=== PATIENT | female | born 1950 | race Caucasian/White ===

== ENCOUNTER 2021-06-10 13:46 | Outpatient (REF) | payer MEDICARE, MEDICAID, SELFPAY ==
--- NOTE | ~2021-06-10 | XR_ITS ---
EXAMINATION: LEFT HAND/WRIST. CLINICAL INFORMATION: Pain in left hand/wrist. Status post fall a month ago. COMPARISON: None TECHNIQUE: 4 views. FINDINGS: There is a small avulsion fracture base of the fifth metacarpal without displacement. No additional fractures seen. There is diffuse osteopenia. There is mild loss of PIP and DIP joints of all digits. No deformity seen. The scaphoid bone appears unremarkable. XR/XR hand wrist LT IMPRESSION: Nondisplaced avulsion fracture base of fifth metacarpal. Mild osteopenia. Mild degenerative changes PIP and DIP joints.
== END 2021-06-10 13:47 | disposition home or self-care (01) ==
LOC: HO.XRAY 13:46
PROVIDERS: PCP Family Medicine; Visit Provider Family Medicine
DX: M79.642 Pain in left hand (principal)
CPT/HCPCS: 73110; 73130

== ENCOUNTER 2021-07-15 12:24 | Outpatient (REF) | payer MEDICARE, MEDICAID, SELFPAY | END 2021-07-15 12:25 | disposition home or self-care (01) | LOC: HO.MAMMO 12:24 | PROVIDERS: PCP Family Medicine; Visit Provider Family Medicine | DX: Z13.89 Encounter for screening for other disorder (principal) ==

== ENCOUNTER 2023-03-31 13:41 | Outpatient (REF) | payer MEDICARE, MEDICAID, SELFPAY ==
--- NOTE | ~2023-03-31 | MM_ITS ---
EXAMINATION: MM SCREENING DIGITAL BREAST TOMOSYNTHESIS, BILATERAL CLINICAL INFORMATION: Screening. Asymptomatic. The lifetime risk of breast cancer based on the Tyrer-Cuzick Model is 3%. COMPARISON: Mammography: 03/25/2018, 01/29/2017, 10/11/2015 TECHNIQUE: Digital breast tomosynthesis is performed in both the craniocaudal and mediolateral oblique views along with computer-aided detection (CAD). Synthesized 2D images are generated from the tomosynthesis. FINDINGS: The breasts are almost entirely fatty (ACR BI-RADS breast composition Category a). There are no significant masses, abnormal calcifications, or other abnormalities. No developing density or architectural abnormality. There are scattered bilateral benign ductal secretory calcifications. The axilla and skin contours are unremarkable. No significant changes. MM/MM tomosynthesis screening BI IMPRESSION: No mammographic evidence of malignancy. ASSESSMENT: BI-RADS 2: Benign RECOMMENDATION: Routine annual mammography screening. This patient's information was entered into a reminder system with a target due date for their next mammogram.
== END 2023-03-31 13:42 | disposition home or self-care (01) ==
LOC: HO.MAMMO 13:41
PROVIDERS: PCP Family Medicine; Visit Provider Family Medicine
DX: Z12.31 Encounter for screening mammogram for malignant neoplasm of breast (principal)
CPT/HCPCS: 77063; 77067

== ENCOUNTER 2023-05-15 13:15 | Outpatient (REF) | payer MEDICARE, MEDICAID, SELFPAY ==
[2023-05-15 16:06] LABS: MANUAL DIFF FLAG NO
[2023-05-15 16:17] LABS: Basophils Absolute Auto 0.1 X10*3/uL (0.0-0.2); Basophils Percent Auto 1.4 % (0-2); Eosinophils Absolute Auto 0.1 X10*3/uL (0.0-0.4); Eosinophils Percent Auto 2.2 % (0-4); Hematocrit 40.8 % (37.0-47.0); Hemoglobin 13.1 g/dl (12.0-16.0); Imm Gran Abs Auto 0.01 X10*3/uL (0.00-0.03); Imm Gran Pct Auto 0.2 % (0.0-0.4); Lymphocytes Percent Auto 33.3 % (20-40); Mean Corpuscular HGB Conc 32.1 g/dl (31.0-35.0); Mean Corpuscular Volume 90.5 fL (80.0-98.0); Mean Platelet Volume 11.7 fL (9.4-12.3); Monocytes Absolute Auto 0.7 X10*3/uL (0.1-1.2); Monocytes Percent Auto 12.4 % (2-11); Neutrophils Percent Auto 50.5 % (45-73); Platelet Count 308 X10*3/uL (160-400); Red Blood Count 4.51 X10*6/uL (4.20-5.50); Red Cell Distribution Width 12.7 % (11.0-16.0); White Blood Count 5.9 X10*3/uL (4.8-10.8)
[2023-05-15 16:31] LABS: Estimated Average Glucose 117 mg/dL; Hemoglobin A1c % 5.7 %
[2023-05-15 17:01] LABS: Chloride 107 mmol/L (96-108)
[2023-05-15 17:06] LABS: Alanine Aminotransferase 12 U/L (0-31); Albumin Level 3.7 g/dL (3.5-5.0); Alkaline Phosphatase 81 U/L (39-117); Anion Gap 14 (12-20); Aspartate Amino Transferase 20 U/L (5-31); Bilirubin Direct 0.2 mg/dL (0.0-0.5); Bilirubin Total 0.5 mg/dL (0.0-1.0); Blood Urea Nitrogen 11 mg/dL (9-16); Carbon Dioxide 25 mmol/L (22-29); Cholesterol 244 mg/dL; Estimated Glomerular Filt Rate > 60; Glucose Random 109 mg/dL (60-115); HDL Cholesterol 57 mg/dL; LDL Cholesterol Calculated 165 mg/dl; Potassium 4.8 mmol/L (3.3-5.1); Sodium 141 mmol/L (135-145); Total Protein 7.9 g/dL (6.5-8.0); Triglycerides 110 mg/dL
[2023-05-15 17:19] LABS: Free T4 (Free Thyroxine) 1.05 ng/dL (0.71-1.85); Thyroid Stimulating Hormone 3.53 uIU/mL (0.32-4.0); Vitamin D 25-OH Total 28.9 ng/mL (>30)
== END 2023-05-15 13:16 | disposition home or self-care (01) ==
LOC: HO.HHCL 13:15
PROVIDERS: Visit Provider Family Medicine
DX: E55.9 Vitamin D deficiency, unspecified (principal); I10 Essential (primary) hypertension; R73.01 Impaired fasting glucose; E78.5 Hyperlipidemia, unspecified
CPT/HCPCS: 36415; 80048; 80061; 80076; 82306; 83036; 84439; 84443; 85025

== ENCOUNTER 2023-05-19 13:54 | Outpatient (REF) | payer MEDICARE, MEDICAID, SELFPAY ==
[2023-05-19 16:40] LABS: Urine Cytology See Pathology rpt
[2023-05-19 18:43] LABS: Creatinine Urine 308.54 mg/dL; Microalbum/Creatinine Ratio Ur 9.3 ug/mg cr
== END 2023-05-19 13:55 | disposition home or self-care (01) ==
LOC: HO.HHCL 13:54
PROVIDERS: Visit Provider Family Medicine
DX: R73.01 Impaired fasting glucose (principal); I10 Essential (primary) hypertension
CPT/HCPCS: 82043; 88112

== ENCOUNTER 2023-10-01 14:22 | Outpatient (REF) | payer MEDICARE, MEDICAID, SELFPAY ==
--- NOTE | ~2023-10-01 | US_ITS ---
EXAMINATION: US RETROPERITONEAL LIMITED (RENAL ONLY) CLINICAL INFORMATION: Hematuria, follow up renal cyst. COMPARISON: Ultrasound retroperitoneal limited 05/26/2019 and 04/12/2018. CT abdomen and pelvis without and with contrast 04/01/2017. TECHNIQUE: Real-time imaging of the kidneys. FINDINGS: RIGHT KIDNEY: 9.1 x 4.9 x 5.5 cm (SAG x AP x TRV). The kidney is normal in size, contour, and echogenicity. Renal cortical thickness is normal. No calculi or focal parenchymal lesions. No hydronephrosis. LEFT KIDNEY: 8.8 x 5.0 x 4.3 cm (SAG x AP x TRV). The kidney is normal in size, contour, and echogenicity. Renal cortical thickness is normal. No calculi or focal parenchymal lesions. Previously seen tiny 6 mm cyst at the lower pole of the left kidney is not visualized on today's exam. In any event, there is no indication for follow up of this abnormality. No hydronephrosis. US/US renal BI IMPRESSION: Negative exam. If hematuria persists, a CT urogram may be beneficial.
== END 2023-10-01 14:23 | disposition home or self-care (01) ==
LOC: HO.US 14:22
PROVIDERS: PCP Family Medicine; Visit Provider Family Medicine
DX: R31.29 Other microscopic hematuria (principal)
CPT/HCPCS: 76775

== ENCOUNTER 2023-10-06 13:58 | Outpatient (REF) | payer MEDICARE, MEDICAID, SELFPAY | END 2023-10-06 13:59 | disposition home or self-care (01) | LOC: HO.LNP 13:58 | PROVIDERS: PCP Family Medicine; Visit Provider Nurse Practitioner Family | DX: R31.29 Other microscopic hematuria (principal); N39.0 Urinary tract infection, site not specified; N28.1 Cyst of kidney, acquired | CPT/HCPCS: 81003; 87086; 99202 ==

== ENCOUNTER 2023-10-06 13:58 | Outpatient (AMB) | payer MEDICARE, MEDICAID, SELFPAY ==
--- NOTE | 2023-10-06 14:01 | MHC.OFFVIS ---
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 Accompanied by: Daughter Allergies penicillin G [Penicillin G] Allergy (Mild, Unverified 10/06/23 14:46) DIZZY,HIVES penicillin V Allergy (Unknown, Unverified 10/06/23 14:46) Unknown Medication List - Last Reconciled 10/06/23 by Bushra Mosher CUSTOMER SALES REPRESENTATIVE- amlodipine 10 mg PO DAILY cetirizine 10 mg PO DAILY ezetimibe mg PO nitrofurantoin monohyd/m-cryst 100 mg (Macrobid) 100 mg PO Q12H 14 days propranolol mg PO sertraline 50 mg PO DAILY tramadol 50 mg PO BID PRN HPI HPI Comments History of Present Illness Details Tosha is a pleasant 73 year old female patient of who was accompanied by her daughter at today's office visit. She has a past medical history of chronic GERD, osteoporosis, overweight, rosacea, major depression, pre diabetes, hyperlipidemia, and hypertension. She presents to the office today as a new patient for microscopic hematuria. When asked she does report previous smoking history of approximately 5 years with no more than half a pack per day. However, she reports having quit over 50 years ago. She otherwise denies any known chemical exposure. In office urinalysis results reviewed with the patient today. 3+ leukocytes, proteinuria, and microscopic hematuria. Discussed at length potential causes of microscopic hematuria. When asked she does report noting lower urinary tract symptoms over the last 2-4 weeks. She reports urinary frequency, urinary urgency, with episodes of incontinence if not near a bathroom. She also does report intermittent dysuria. She otherwise denies any visible hematuria, foul-smelling urine, flank pain, fever, and or chills. Discussed further microscopic hematuria workup with CT urogram, urine cytology, and in office cystoscopy. Discussed risks and benefits of surveillance monitoring versus further microscopic hematuria workup. She otherwise offers no other issues or concerns at this time. In review of patient's chart does appear renal ultrasound was ordered and completed. These results reviewed with the patient today. Right kidney with no calculi, lesions, and or hydronephrosis. Left kidney with no calculi and or lesions noted. Previously seen tiny 6 mm cyst at the lower pole of the left kidney is not visualized on today's exam. No hydronephrosis. [facility] Medical History Chronic gastroesophageal reflux disease Osteoporosis Overweight Rosacea Major depression Pre-diabetes Hyperlipidemia Essential hypertension Review of Systems Const Reports as per HPI Eyes Reports no additional complaints ENT Reports no additional complaints Card Reports as per HPI Resp Reports no additional complaints GI Reports as per HPI Reports as per HPI Musc Reports no additional complaints Neuro Reports no additional complaints Psych Reports as per HPI Endo Reports as per HPI Patel/Lymph Reports no additional complaints Aller/Immun Reports no additional complaints Physical Exam Const General: cooperative, healthy appearing, comfortable, no acute distress, well developed, alert and awake Orientation/consciousness: patient oriented x3 Limitations: no limitations HEENT Head: Yes normal to inspection, Yes normocephalic and Yes atraumatic Ears: hearing grossly normal bilaterally Eyes General: appearance normal, both eyes and all related structures Neck Neck: Yes normal visual inspection and Yes trachea midline Chest Chest palpation & inspection: normal inspection of the chest Resp Effort & Inspection: normal respiratory effort and able to speak in complete sentences Cardio Rate: regular rate GI Inspection: Yes normal to inspection General: Yes no CVA tenderness Back/Spine/Pelvis Back: no CVA tenderness Skin General skin exam: no rashes or lesions noted Neuro General: patient oriented x3 Extrem General: Yes normal to inspection Psych Appearance: grossly normal and well kempt Mental Status: mental status grossly normal Speech and movement: Normal speech and movement present and Clear speech present Affect: normal affect Attitude: cooperative Thought process: Normal thought process present Thought content: Normal thought content present Insight: Fair insight present (Psych) Judgement: Fair judgement present (Psych) Results AMB Urinalysis, Automated UA Leukoctes 500 Teri/uL Last Edit by Callum Peck on 10/06/23 14:21 UA Nitrite Negative Last Edit by Callum Peck on 10/06/23 14:21 UA Urobilinogen 0.2 mg/dL Last Edit by Callum Peck on 10/06/23 14:21 UA Protein 30 mg/dL Last Edit by Callum Peck on 10/06/23 14:21 UA pH 6.0 Last Edit by Callum Peck on 10/06/23 14:21 UA Blood 80 Shaji/uL Last Edit by Callum Peck on 10/06/23 14:21 UA Specific [place] 1.030 Last Edit by Callum Peck on 10/06/23 14:21 UA Ketone Positive Last Edit by Callum Peck on 10/06/23 14:21 UA Bilirubin 1 mg/dL Last Edit by Callum Peck on 10/06/23 14:21 UA Glucose 0 mg/dL Last Edit by Callum Peck on 10/06/23 14:21 Results Reviewed Results Reviewed: Laboratory Last Values Urine pH (Auto) 6.0 10/06/23 14:08 Specific [place] (Auto) 1.030 10/06/23 14:08 Urine Protein (Auto) 30 mg/dL 10/06/23 14:08 Glucose (UA)(Auto) 0 mg/dL 10/06/23 14:08 Urine Ketones (Auto) Positive 10/06/23 14:08 Urine Blood (Auto) 80 [place]/uL 10/06/23 14:08 Urine Nitrite (Auto) Negative 10/06/23 14:08 Urine Bilirubin (Auto) 1 mg/dL 10/06/23 14:08 Urine Urobilinogen (Auto) 0.2 mg/dL 10/06/23 14:08 Leukocyte Esterase (Auto) 500 Teri/uL 10/06/23 14:08 Date of Service: 10/01/23 EXAMINATION: US RETROPERITONEAL LIMITED (RENAL ONLY) FINDINGS: RIGHT KIDNEY: 9.1 x 4.9 x 5.5 cm (SAG x AP x TRV). The kidney is normal in size, contour, and echogenicity. Renal cortical thickness is normal. No calculi or focal parenchymal lesions. No hydronephrosis. LEFT KIDNEY: 8.8 x 5.0 x 4.3 cm (SAG x AP x TRV). The kidney is normal in size, contour, and echogenicity. Renal cortical thickness is normal. No calculi or focal parenchymal lesions. Previously seen tiny 6 mm cyst at the lower pole of the left kidney is not visualized on today's exam. In any event, there is no indication for follow up of this abnormality. No hydronephrosis. IMPRESSION: Negative exam. If hematuria persists, a CT urogram may be beneficial. Assessment & Plan Assessment & Plan (1) Microhematuria: Code(s): R31.29 - Other microscopic hematuria (2) Urinary tract infection: Code(s): N39.0 - Urinary tract infection, site not specified (3) Lower urinary tract symptoms: Code(s): R39.9 - Unspecified symptoms and signs involving the genitourinary system (4) Renal cyst: Code(s): N28.1 - Cyst of kidney, acquired Plan In office urinalysis results reviewed with the patient today; as noted above; will send for urine culture. Start Macrobid as discussed and prescribed. Discussed at length potential causes of lower urinary tract symptoms as well as microscopic hematuria. Will obtain CT urogram for further assessment evaluation. BUN and creatinine ordered for imaging. Discussed, stressed, and encouraged on the importance of drinking plenty of water daily. Discussed bladder triggers/irritants. Follow-up in 1 month with imaging to be completed prior; or sooner with any issues, concerns, and or questions. Orders: Orders AMB Urinalysis Automated Today Z13.9 - Encounter for screening, unspecified Blood Urea Nitrogen Today N28.1 - Cyst of kidney, acquired, N39.0 - Urinary tract infection, site not specified, R31.29 - Other microscopic hematuria, R39.9 - Unspecified symptoms and signs involving the genitourinary system CT urogram Today R31.0 - Gross hematuria Creatinine Today N28.1 - Cyst of kidney, acquired, N39.0 - Urinary tract infection, site not specified, R31.29 - Other microscopic hematuria, R39.9 - Unspecified symptoms and signs involving the genitourinary system Urine Culture Today N39.0 - Urinary tract infection, site not specified Medications: New nitrofurantoin monohyd/m-cryst 100 mg (Macrobid) must administer with a meal/food 100 mg PO Q12H 14 days 28 caps 0RF Patient Instructions: The patient had an opportunity to ask questions regarding the treatment plan. All questions were answered. Physical exam, labs, and imaging were discussed and reviewed in detail. As well as risks, benefits, and discussion of treatment choices. No major barriers to understanding were identified. The patient expressed understanding and agreement with the above treatment plan. The patient was made aware they should contact our office by phone for worsening of their current condition, the appearance of new symptoms, or with any questions or concerns. Compliance is encouraged with any medications and follow up testing that is ordered. It is a privilege to be allowed the opportunity to participate in? your urological care.? Again, if you have any questions or concerns If you have any questions or concerns please do not hesitate to contact me. The office is [phone]. This note is constructed using voice recognition software. While every effort has been made to ensure accuracy heavy equipment diesel mechanic errors may have been included. Yours sincerely, TRISTEN [place] Coding Level of Care Code New Pt Level 4 (25937) Diagnoses Microhematuria R31.29 Urinary tract infection N39.0 Lower urinary tract symptoms R39.9 Renal cyst N28.1
== END 2023-10-06 14:34 | disposition home or self-care (01) ==
PROVIDERS: PCP Family Medicine; Visit Provider Nurse Practitioner Family
DX: R31.29 Other microscopic hematuria (principal); N39.0 Urinary tract infection, site not specified; R39.9 Unspecified symptoms and signs involving the genitourinary system; N28.1 Cyst of kidney, acquired
CPT/HCPCS: 99204

== ENCOUNTER 2023-10-07 14:18 | Outpatient (REF) | payer MEDICARE, MEDICAID, SELFPAY ==
[2023-10-07 17:02] LABS: Blood Urea Nitrogen 14 mg/dL (9-16); Estimated Glomerular Filt Rate > 60
== END 2023-10-07 14:19 | disposition home or self-care (01) ==
LOC: HO.CHCLDS 14:18
PROVIDERS: Visit Provider Nurse Practitioner Family
DX: N28.1 Cyst of kidney, acquired (principal); R39.9 Unspecified symptoms and signs involving the genitourinary system; R31.29 Other microscopic hematuria; N39.0 Urinary tract infection, site not specified
CPT/HCPCS: 36415; 82565; 84520

== ENCOUNTER 2024-01-19 14:42 | Outpatient (REF) | payer OTHER, SELFPAY ==
--- NOTE | ~2024-01-19 | CT_ITS ---
EXAMINATION: CT ABDOMEN AND PELVIS WITHOUT AND WITH CONTRAST CLINICAL INFORMATION: Gross hematuria COMPARISON: None renal from 10/01/2023, CT abdomen and pelvis from 04/01/2017 TECHNIQUE: Noncontrast CT of the abdomen and pelvis is performed followed by split bolus contrast-enhanced images using 85 mL Omnipaque 350 contrast.? Postcontrast imaging is performed during the combined nephrogram and excretion phase. Sagittal and coronal reformatted images were obtained on the technologist's workstation for both the precontrast and postcontrast phases. This CT examination was performed using dose optimization techniques as appropriate, variously including the following: *Automated exposure control *Adjustment of mA and/or kV according to patient size (this includes techniques or standardized protocols for targeted exams where dose is matched to indication/reason for exam; i.e. extremities or head) *Use of iterative reconstruction technique DLP: 708 mGy-cm FINDINGS: LUNG BASES: No pneumothorax. No large pleural effusion. LIVER, GALLBLADDER, AND BILIARY TREE: The liver is normal in size, shape, and attenuation. A few subcentimeter right hepatic foci are noted too small to characterize though statistically representing cysts. No focal hepatic lesion or biliary ductal dilatation is present. The gallbladder is unremarkable with no evidence of radiopaque gallstones, gallbladder wall thickening, or obvious pericholecystic inflammatory changes. PANCREAS: Ossification pancreatic body/tail potentially representing vascular calcification versus sequela of remote pancreatitis. SPLEEN: Unremarkable. ADRENAL GLANDS: Unremarkable. KIDNEYS AND URETERS: Right kidney measures 8.3 cm in greatest dimension. The left kidney measures 8.6 cm in greatest dimension. The kidneys are normal in size, shape, and attenuation. No hydronephrosis, hydroureter, or calculi seen. No perinephric stranding. Symmetric uptake and excretion of contrast. BLADDER: Urinary bladder is mildly distended and fills appropriately and postcontrast imaging without focal intraluminal filling defect identified. Questionable bladder wall thickening which is nonspecific in an underdistended state. GASTROINTESTINAL TRACT: Large hiatal hernia. Enteric contrast noted within the sigmoid colon The small and large bowel are unremarkable. The appendix is unremarkable. ABDOMINAL WALL: No significant hernia is appreciated. LYMPH NODES: No enlarged lymph nodes per size criteria. VASCULAR: Abdominal aorta is nonaneurysmal. Pelvic phleboliths are noted. PELVIC VISCERA: Anteverted uterus. OSSEUS STRUCTURES: Osteopenia. Multilevel degenerative changes of the thoracolumbar and lumbosacral spine. CT/CT urogram IMPRESSION: 1. No acute process of the abdomen or pelvis identified. 2. Urinary bladder is mildly distended and fills appropriately and postcontrast imaging without focal intraluminal filling defect identified. Questionable bladder wall thickening which is nonspecific in an underdistended state. 3. Large hiatal hernia. 4. Osteopenia.
[2024-01-19] MEDS: iohexoL 350 MG/ML 100 ML INFUS..BTL 85 ML IV (15:47)
[2024-01-20 07:30] LABS: Creatinine POC 0.7 mg/dL (0.5-1.4); GFR POC > 60
== END 2024-01-19 14:43 | disposition home or self-care (01) ==
LOC: HO.CT 14:42
PROVIDERS: PCP Family Medicine; Visit Provider Nurse Practitioner Family
DX: R31.0 Gross hematuria (principal)
CPT/HCPCS: 74178; 82565; Q9967

== ENCOUNTER 2024-01-29 13:43 | Outpatient (REF) | payer OTHER, SELFPAY | END 2024-01-29 13:44 | disposition home or self-care (01) | LOC: HO.LNP 13:43 | PROVIDERS: PCP Family Medicine; Visit Provider Nurse Practitioner Family | DX: R39.9 Unspecified symptoms and signs involving the genitourinary system (principal); N39.0 Urinary tract infection, site not specified; R31.29 Other microscopic hematuria; N32.89 Other specified disorders of bladder | CPT/HCPCS: 81003; 87086; 99212 ==

== ENCOUNTER 2024-01-29 13:43 | Outpatient (AMB) | payer OTHER, MEDICAID, SELFPAY ==
--- NOTE | 2024-01-29 14:03 | MHC.OFFVIS ---
Intake Intake Visit Reasons: 7w/CT(set) Intake Note: Patient presents for follow up visit for micro hematuria Urology Medications: none Blood Thinner: none Roller Mill Operator Required: Yes Roller Mill Operator Name: ENDY CHAVARRIA Accompanied by: Daughter Allergies penicillin G [Penicillin G] Allergy (Mild, Unverified 01/30/24 23:18) DIZZY,HIVES penicillin V Allergy (Unknown, Unverified 01/30/24 23:18) Unknown Medication List - Last Reconciled 01/30/24 by CESAR Dover- amlodipine 10 mg PO DAILY cetirizine 10 mg PO DAILY ezetimibe mg PO fluticasone propionate 50 mcg/actuation sprays intranasal propranolol mg PO sertraline 50 mg PO DAILY tramadol 50 mg PO BID PRN HPI HPI Comments History of Present Illness Details Tosha is a pleasant 73 year old female patient of Dr. Whittaker who was accompanied by her daughter at today's office visit. She has a past medical history of chronic GERD, osteoporosis, overweight, rosacea, major depression, pre diabetes, hyperlipidemia, and hypertension. She presents to the office today for follow-up. Of note, patient was seen approximately 3 months ago as a new patient for microscopic hematuria at which time a CT urogram was ordered for further assessment evaluation. These results reviewed with the patient today. The kidneys are normal in size, shape, and attenuation. No hydronephrosis, hydroureter, or calculi seen. The urinary bladder is mildly distended and fills appropriately and post contrast imaging without focal defect. Question bladder wall thickening however bladder is underdistended. During last office visit urine was sent for urine culture due to 3+ leukocytes however final culture results with mixed bacteria. Discussed completion of microscopic hematuria workup with in office cystoscopy. She does report a previous smoking history of approximately 5 years with no more than half a pack per day. However, she reports having quit over 50 years ago. She otherwise denies any known chemical exposure. 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 In office urinalysis results reviewed with the patient today. She does report urinary frequency, urinary urgency, and episodes of incontinence if not near a bathroom however does not find this bothersome. She otherwise denies foul-smelling urine, flank pain, fever, and or chills. Discussed risks and benefits of surveillance monitoring versus further microscopic hematuria workup with in office cystoscopy and urine cytology. She otherwise offers no other issues or concerns at this time. [facility] Medical History Chronic gastroesophageal reflux disease Osteoporosis Overweight Rosacea Major depression Pre-diabetes Hyperlipidemia Essential hypertension Review of Systems Const Reports as per HPI Eyes Reports no additional complaints ENT Reports no additional complaints Card Reports as per HPI Resp Reports no additional complaints GI Reports as per HPI Reports as per HPI Musc Reports no additional complaints Neuro Reports no additional complaints Psych Reports as per HPI Endo Reports as per HPI Patel/Lymph Reports no additional complaints Aller/Immun Reports no additional complaints Physical Exam Const General: cooperative, healthy appearing, comfortable, no acute distress, well developed, alert and awake Orientation/consciousness: patient oriented x3 Limitations: no limitations HEENT Head: Yes normal to inspection, Yes normocephalic and Yes atraumatic Ears: hearing grossly normal bilaterally Eyes General: appearance normal, both eyes and all related structures Neck Neck: Yes normal visual inspection and Yes trachea midline Chest Chest palpation & inspection: normal inspection of the chest Resp Effort & Inspection: normal respiratory effort and able to speak in complete sentences Cardio Rate: regular rate GI Inspection: Yes normal to inspection General: Yes no CVA tenderness Back/Spine/Pelvis Back: no CVA tenderness Skin General skin exam: no rashes or lesions noted Neuro General: patient oriented x3 Extrem General: Yes normal to inspection Psych Appearance: grossly normal and well kempt Mental Status: mental status grossly normal Speech and movement: Normal speech and movement present and Clear speech present Affect: normal affect Attitude: cooperative Thought process: Normal thought process present Thought content: Normal thought content present Insight: Fair insight present (Psych) Judgement: Fair judgement present (Psych) Results AMB Urinalysis, Automated UA Leukoctes 500 Teri/uL Last Edit by Callum Peck on 01/29/24 14:18 UA Nitrite Negative Last Edit by Callum Peck on 01/29/24 14:18 UA Urobilinogen 0.2 mg/dL Last Edit by Callum Peck on 01/29/24 14:18 UA Protein 15 mg/dL Last Edit by Callum Peck on 01/29/24 14:18 UA pH 6.0 Last Edit by Callum Peck on 01/29/24 14:18 UA Blood 25 Shaji/uL Last Edit by Callum Pcek on 01/29/24 14:18 UA Specific [place] 1.025 Last Edit by Callum Peck on 01/29/24 14:18 UA Ketone Positive Last Edit by Callum Peck on 01/29/24 14:18 UA Bilirubin 1 mg/dL Last Edit by Callum Peck on 01/29/24 14:18 UA Glucose 0 mg/dL Last Edit by Callum Peck on 01/29/24 14:18 Results Reviewed Results Reviewed: Laboratory Last Values Urine pH (Auto) 6.0 01/29/24 14:05 Specific [place] (Auto) 1.025 01/29/24 14:05 Urine Protein (Auto) 15 mg/dL 01/29/24 14:05 Glucose (UA)(Auto) 0 mg/dL 01/29/24 14:05 Urine Ketones (Auto) Positive 01/29/24 14:05 Urine Blood (Auto) 25 Shaji/uL 01/29/24 14:05 Urine Nitrite (Auto) Negative 01/29/24 14:05 Urine Bilirubin (Auto) 1 mg/dL 01/29/24 14:05 Urine Urobilinogen (Auto) 0.2 mg/dL 01/29/24 14:05 Leukocyte Esterase (Auto) 500 Teri/uL 01/29/24 14:05 Date of Service: 01/19/24 EXAMINATION: CT ABDOMEN AND PELVIS WITHOUT AND WITH CONTRAST FINDINGS: LUNG BASES: No pneumothorax. No large pleural effusion. LIVER, GALLBLADDER, AND BILIARY TREE: The liver is normal in size, shape, and attenuation. A few subcentimeter right hepatic foci are noted too small to characterize though statistically representing cysts. No focal hepatic lesion or biliary ductal dilatation is present. The gallbladder is unremarkable with no evidence of radiopaque gallstones, gallbladder wall thickening, or obvious pericholecystic inflammatory changes. PANCREAS: Ossification pancreatic body/tail potentially representing vascular calcification versus sequela of remote pancreatitis. SPLEEN: Unremarkable. ADRENAL GLANDS: Unremarkable. KIDNEYS AND URETERS: Right kidney measures 8.3 cm in greatest dimension. The left kidney measures 8.6 cm in greatest dimension. The kidneys are normal in size, shape, and attenuation. No hydronephrosis, hydroureter, or calculi seen. No perinephric stranding. Symmetric uptake and excretion of contrast. BLADDER: Urinary bladder is mildly distended and fills appropriately and postcontrast imaging without focal intraluminal filling defect identified. Questionable bladder wall thickening which is nonspecific in an underdistended state. GASTROINTESTINAL TRACT: Large hiatal hernia. Enteric contrast noted within the sigmoid colon The small and large bowel are unremarkable. The appendix is unremarkable. ABDOMINAL WALL: No significant hernia is appreciated. LYMPH NODES: No enlarged lymph nodes per size criteria. VASCULAR: Abdominal aorta is nonaneurysmal. Pelvic phleboliths are noted. PELVIC VISCERA: Anteverted uterus. OSSEUS STRUCTURES: Osteopenia. Multilevel degenerative changes of the thoracolumbar and lumbosacral spine. IMPRESSION: 1. No acute process of the abdomen or pelvis identified. 2. Urinary bladder is mildly distended and fills appropriately and postcontrast imaging without focal intraluminal filling defect identified. Questionable bladder wall thickening which is nonspecific in an underdistended state. 3. Large hiatal hernia. 4. Osteopenia. Assessment & Plan Assessment & Plan (1) Lower urinary tract symptoms: Code(s): R39.9 - Unspecified symptoms and signs involving the genitourinary system (2) Microhematuria: Code(s): R31.29 - Other microscopic hematuria (3) Urinary tract infection: Code(s): N39.0 - Urinary tract infection, site not specified (4) Bladder wall thickening: Code(s): N32.89 - Other specified disorders of bladder Plan In office urinalysis results reviewed with the patient today; as noted above; will send for urine culture. Recent CT urogram results reviewed with the patient today; as noted above. Discussed completion of microscopic hematuria workup with in office cystoscopy and urine cytology; however, patient would like to think about this. Discussed, educated, and stressed the importance of drinking water daily. Discussed at length potential causes for lower urinary tract symptoms patient has been experiencing. Patient does report lower urinary tract symptoms however does not find them bothersome. Follow-up in 3 months with [facility]; or sooner with any issues, concerns, and or questions. Orders: Orders Urine Culture 01/29/24 N39.0 - Urinary tract infection, site not specified AMB Urinalysis Automated 01/29/24 Z13.9 - Encounter for screening, unspecified Patient Instructions: The patient had an opportunity to ask questions regarding the treatment plan. All questions were answered. Physical exam, labs, and imaging were discussed and reviewed in detail. As well as risks, benefits, and discussion of treatment choices. No major barriers to understanding were identified. The patient expressed understanding and agreement with the above treatment plan. The patient was made aware they should contact our office by phone for worsening of their current condition, the appearance of new symptoms, or with any questions or concerns. Compliance is encouraged with any medications and follow up testing that is ordered. It is a privilege to be allowed the opportunity to participate in? your urological care.? Again, if you have any questions or concerns If you have any questions or concerns please do not hesitate to contact me. The office is [phone]. This note is constructed using voice recognition software. While every effort has been made to ensure accuracy seaman officer errors may have been included. Yours sincerely, TRISTEN Dover Coding Level of Care Code Est Pt Level 3 (27863) Diagnoses Lower urinary tract symptoms R39.9 Microhematuria R31.29 Urinary tract infection N39.0 Bladder wall thickening N32.89
== END 2024-01-29 14:40 | disposition home or self-care (01) ==
PROVIDERS: PCP Family Medicine; Visit Provider Nurse Practitioner Family
DX: R39.9 Unspecified symptoms and signs involving the genitourinary system (principal); R31.29 Other microscopic hematuria; N39.0 Urinary tract infection, site not specified; N32.89 Other specified disorders of bladder
CPT/HCPCS: 99213

== ENCOUNTER 2024-09-08 12:59 | Outpatient (REF) | payer OTHER, SELFPAY ==
--- NOTE | ~2024-09-08 | XR_ITS ---
EXAMINATION: XR SHOULDER, LEFT CLINICAL INFORMATION: Left shoulder pain COMPARISON: None available. TECHNIQUE: AP external rotation, Grashey, scapular Y, and axillary views of the left shoulder. FINDINGS: There is mild acromioclavicular osteoarthritis. Glenohumeral joint is well preserved. No fracture. Alignment is anatomic. Soft tissues are normal with no abnormal calcifications. XR/XR shoulder LT min 2V IMPRESSION: Mild acromioclavicular joint arthritis. Electronically signed by: Adri Murphy MD 09/08/2024 01:50 PM EST
[2024-09-08 16:21] LABS: Hematocrit 38.3 % (37.0-47.0); Hemoglobin 12.4 g/dl (12.0-16.0); Mean Corpuscular HGB Conc 32.4 g/dl (31.0-35.0); Mean Corpuscular Hemoglobin 28.5 pg (27.0-33.0); Mean Platelet Volume 11.5 fL (9.4-12.3); Platelet Count 318 X10*3/uL (160-400); Red Blood Count 4.35 X10*6/uL (4.20-5.50); Red Cell Distribution Width 13.2 % (11.0-16.0); White Blood Count 5.9 X10*3/uL (4.8-10.8)
[2024-09-08 16:33] LABS: Estimated Average Glucose 123 mg/dL; Hemoglobin A1c % 5.9 % (<6.0); Total Hemoglobin (HGBA1C) 3327.1161 umol/L
[2024-09-08 17:09] LABS: Alanine Aminotransferase 17 U/L (0-31); Albumin Level 3.7 g/dL (3.5-5.0); Alkaline Phosphatase 77 U/L (39-117); Anion Gap 10 (12-20); Aspartate Amino Transferase 26 U/L (5-31); Bilirubin Direct 0.1 mg/dL (0.0-0.5); Bilirubin Total 0.3 mg/dL (0.0-1.0); Blood Urea Nitrogen 15 mg/dL (9-16); Calcium 9.3 mg/dL (8.4-10.2); Carbon Dioxide 26 mmol/L (22-29); Chloride 106 mmol/L (96-108); Cholesterol 236 mg/dL (<200); Estimated Glomerular Filt Rate > 60; Glucose Random 119 mg/dL (60-115); HDL Cholesterol 59 mg/dL (>40); LDL Cholesterol Calculated 158 mg/dL (<100); Potassium 4.4 mmol/L (3.3-5.1); Sodium 138 mmol/L (135-145); Triglycerides 97 mg/dL (<150)
[2024-09-08 17:17] LABS: Free T4 (Free Thyroxine) 1.19 ng/dL (0.71-1.85); Thyroid Stimulating Hormone 4.41 uIU/mL (0.32-4.0); Vitamin D 25-OH Total 29.5 ng/mL (>30)
== END 2024-09-08 13:00 | disposition home or self-care (01) ==
LOC: HO.HHCL 12:59
PROVIDERS: Visit Provider Family Medicine
DX: I10 Essential (primary) hypertension (principal); M25.512 Pain in left shoulder; G89.29 Other chronic pain; Z13.1 Encounter for screening for diabetes mellitus
CPT/HCPCS: 36415; 73030; 80048; 80061; 80076; 82306; 83036; 84439; 84443; 85027

== ENCOUNTER 2024-09-26 14:30 | Outpatient (REF) | payer OTHER, SELFPAY ==
[2024-09-26 16:22] LABS: Appearance Urine Turbid; Color Urine Dark Yellow; Glucose Urine UA Negative (Negative); Leukocyte Esterase Urine Large (3+) (Negative); Nitrite Urine Negative (Negative); PH 5.5 (5.0-9.0); Specific Gravity - Urine 1.025 (1.005-1.025); UMIC TRIGGER UA YES; Urine Blood Trace (Negative); Urine Ketones Trace mg/dL (Negative); Urine Protein 30 (1+) mg/dL (Neg-Trace)
[2024-09-26 16:46] LABS: Creatinine Urine 329.27 mg/dL; Microalbum/Creatinine Ratio Ur 12.7 ug/mg cr (<30)
[2024-09-26 17:22] LABS: Bacteria Urine 4+ (None Seen); Squamous Epithelial Cell Urine >20 /HPF (0-2)
== END 2024-09-26 14:31 | disposition home or self-care (01) ==
LOC: HO.HHCL 14:30
PROVIDERS: Visit Provider Family Medicine
DX: I10 Essential (primary) hypertension (principal); R31.29 Other microscopic hematuria
CPT/HCPCS: 81001; 82043; 82570

== ENCOUNTER 2024-11-07 13:28 | Outpatient (AMB) | payer OTHER, SELFPAY ==
--- NOTE | 2024-11-07 13:39 | A.OFFVIS_ITS ---
Vital Signs 11/07/24 14:10 Height 5 ft 2 in Weight 155 lb BMI 28.3 BP 120/53 L Blood Pressure Location Rt brachial Position Sitting Intake Visit Reasons: Subcutaneous nodules Intake Note: Patient referred by pcp Dr. Shepard for nodules on bilateral upper arms. Reports nodules have been present for 2m. Patient c/o: pain that spreads to back and shouldersl. Denies oozing, bleeding. Access Control Officer Required: No Accompanied by: Chayo daughter Allergies penicillin G [Penicillin G] Allergy (Mild, Unverified 11/07/24 14:08) DIZZY,HIVES penicillin V Allergy (Unknown, Unverified 11/07/24 14:08) Unknown HPI Comments Details: Patient presents with her daughter. She is having issues with her left arm/shoulder. She has difficulty abducting and range of motion. Incidentally found were subcutaneous left upper arm lipomas and and the patient and her daughter unconcerned that these are causing the patient's symptoms. They have not seen an orthopedic doctor for these symptoms. Left shoulder issue has been going on for several months time. Chart was reviewed and patient evaluated [facility] Medical History Chronic gastroesophageal reflux disease Osteoporosis Overweight Rosacea Major depression Pre-diabetes Hyperlipidemia Essential hypertension Social History (Updated 11/07/24 @ 14:09 by SIOBHAN Hope) Alcohol intake: never Patient Tobacco Use Status: Never used Tobacco Physical Exam Vital Signs: Last Vital Signs BP 120/53 L 11/07/24 14:10 BMI result Body Mass Index 28.3 Extrem Other: Patient has 3 small between 1-2 cm lipomas involving left upper arm. One is anterior 1 is lateral and wound was posterior. User very innocuous. Assessment & Plan Assessment & Plan (1) Multiple lipomas: Code(s): D17.9 - Benign lipomatous neoplasm, unspecified Category: Surgical (2) Left shoulder pain: Code(s): M25.512 - Pain in left shoulder Category: Surgical Plan I discussed with the patient and her daughter that her shoulder issues are very unlikely to be related to these lipomas. This is more likely related to the arthritic or rotator cuff issues. Current plan is to arrange for orthopedic evaluation and direct further interventions and studies based on their recommendations. At present no acute surgical intervention required regarding the lipomas. Patient will otherwise follow-up p.r.n.. All questions answered. Orders: Referrals Orthopedics Referral M12.811 - Other specific arthropathies, not elsewhere classified, right shoulder, M12.812 - Other specific arthropathies, not elsewhere classified, left shoulder Coding Level of Care Code New Pt Level 4 (43940) Diagnoses Multiple lipomas D17.9 Left shoulder pain M25.512
[2024-11-07 14:10] VITALS: BP 120/53; BMI 28.3
== END 2024-11-07 14:49 | disposition home or self-care (01) ==
PROVIDERS: PCP Family Medicine; Visit Provider Surgery
DX: D17.9 Benign lipomatous neoplasm, unspecified (principal); M25.512 Pain in left shoulder
CPT/HCPCS: 99204

== ENCOUNTER 2025-02-07 10:42 | Outpatient (REF) | payer OTHER, SELFPAY ==
--- NOTE | ~2025-02-07 | XR_ITS ---
EXAMINATION: XR SHOULDER, RIGHT CLINICAL INFORMATION: M25.519 - Pain in unspecified shoulder COMPARISON: May 12, 2014 is not available. TECHNIQUE: AP external rotation, Grashey, scapular Y, and axillary views of the right shoulder. FINDINGS: No acute cortical disruption or malalignment. No lytic or blastic lesions. XR/XR shoulder RT min 2V IMPRESSION: Normal right shoulder. Electronically signed by: Moshe Chawla MD 02/07/2025 02:14 PM EDT
--- OUTSIDE RECORDS SUMMARY | 2025-02-08 12:20 | XMS_ITS | Encounter Summary ---
Author Organization [employer] Address [address] [place] [address] Care Team Providers Care Bristle Machine Operator Name Role Phone Padmini Whittaker DO Primary Care Provider + [phone] Reason for Visit * Reason Onset Date Comments Appontment Cancel 02/06/2025 Encounter Details Date Type Department Care Team ([facility] st Contact Info) Description 02/06/2025 Telephone [facility] [address] [place] [address] Padmini Whittaker DO [address] [place] [address] Appontment Cancel Social History Tobacco Use Types Packs/Day Years Used Date Smoking Tobacco: Former Cigarettes Smokeless Tobacco: Never Alcohol Use Standard Drinks/Week Comments Never 0 (1 standard drink = 0.6 oz pur e alcohol) Depression Answer Date Recorded Patient Health Questionnaire-9 Score 0 08/17/2023 Patient Health Questionnaire-9 Score 0 08/17/2023 Last PHQ-9: Questionnaire Data Not on file 1 Housing Stability Answer Date Recorded What is your housing situation today? I have jason william 01/30/[address] you li ve. Do you have problems with any of the following? None of the above 01/30/2025 Food Insecurity Answer Date Recorded Within the past 12 months, y ou worried that your food would run out before you got money to buy more: Never True 01/30/2025 Within the past 12 months,th e food you bought just didn't last and you didn't have enough money to get more: Never True Transportation Answer Date Recorded In the past 12 months, has l ack of transportation kept you from medical appts, meetings, work or from getting things needed for daily living? No 01/30/2025 Utilities Answer Date Recorded In the past 12 months, has t he electric, gas, oil or water company threatened to shut off services in your home? No 01/30/2025 Depression Answer Date Recorded Patient Health Questionnaire-2 Score 0 08/17/2023 Internet Access Answer Date Recorded Internet Access Q1 Yes 01/30/2025 Internet Access Q2 Not on file 01/30/2025 Comments Unknown Sex and Gender Information Value Date Recorded Sex Assigned at Female 09/01/2022 10:18 AM EDT Legal Sex Female 10:18 AM EDT Gender Identity Female 09/01/2022 10:18 AM EDT Sexual Orientation Straight 09/01/2022 10 :18 AM EDT documented as of this encounter Miscellaneous Notes * Telephone Encounter - Cyndee Moon MA - 02/06/2025 9:38 AM EDT Spoke with patient daughter Dr. Whittaker is out today will call patient to reschedule. documented in this encounter Plan of Treatment Upcoming Encounters Date Type Department Care Team (Late st Contact Info) Description 02/14/2025 2:30 PM EDT Office Visit [facility] [address] [place] [address] TarkaConnie, OD [address] [place] [address] documented as of this encounter Visit Diagnoses Not on filedocumented in this encounter Additional Health Concerns Assessment Noted Time PHQ-9 Depression Total Score: 0 08/17/20 23 10:33 AM EDT documented as of this encounter Care Teams Bristle Machine Operator Relationship Specialty Start Date End Date Padmini Whittaker DO [address] [place] [address] PCP - General Family Medicine 08/25/13 documented as of this encounter
--- OUTSIDE RECORDS SUMMARY | 2025-02-08 12:20 | XMS_ITS | Encounter Summary ---
Author Organization [employer] Address [address] [facility] 7t [place] [address] Care Team Providers Care Activities Therapist Name Role Phone Padmini Whittaker DO Primary Care Provider + [phone] Reason for Visit * Reason Onset Date Comments Med Refill 02/03/2025 Encounter Details Date Type Department Care Team (Late st Contact Info) Description 02/03/2025 Refill [facility]EDS [address] [place] [address] Padmini Whittaker DO [address] [facility] [place] [address] Chronic left shoulder pain Social History Tobacco Use Types Packs/Day Years [...] as of this encounter Miscellaneous Notes * Addendum Note - Funmi Ram RN - 02/03/2025 9:02 AM EDTAddended by: FUNMI RAM on: 02/03/2025 09:02 AM Modules accepted: Orders * Telephone Encounter - Funmi Ram RN - 02/03/2025 9:02 AM EDT Leyla reviewed, pt. Last picked up 7 day supply tramadol 01/18/25, rx due and pended * Telephone Encounter - Renata Fernandez LPN - 02/03/2025 8:56 AM EDT Received request on tramadol 50 mg documented in this encounter Plan of Treatment Upcoming Encounters Date Type Department Care Team (Late st Contact Info) Description 02/14/2025 2:30 PM EDT Office Visit [facility] OPTOMETRY [address] [place] [address] Connie Blair, OD [address] [place], [place] [phone] documented as of this encounter Visit Diagnoses Diagnosis Chronic left shoulder pain Pain in joint, shoulder region documented in this encounter Additional Health Concerns Assessment Noted Time PHQ-9 Depression Total Score: 0 08/17/20 23 10:33 AM EDT documented as of this encounter Care Teams Activities Therapist Relationship Specialty Start Date End Date Padmini Whittaker DO [address] [place] [address] PCP - General Family Medicine 08/25/13 documented as of this encounter
--- OUTSIDE RECORDS SUMMARY | 2025-02-08 12:20 | XMS_ITS | Encounter Summary ---
Author Organization [employer] Address [address] [place] [address] 7t [place] [address] Care Team Providers Care Oil Well Service Operator Helper Name Role Phone Padmini Whittaker DO Primary Care Provider + [phone] Reason for Visit * Reason Comments Med Refill Encounter Details Date Type Department Care Team (Late st Contact Info) Description 05/01/2023 Refill [facility] [address] [place] [address] Padmini Whittaker DO [address] [place] [address] Depression, unspecified depression type Social History Tobacco Use Types Packs/Day Years Used Date Smoking Tobacco: Former Cigarettes Smokeless Tobacco: Never Alcohol Use Standard Drinks/Week Comments Never 0 (1 standard drink = 0.6 oz pur e alcohol) Depression Answer Date Recorded Patient Health Questionnaire-9 Score 10 10/14/2022 Comments Unknown Sex and Gender Information Value Date Recorded Sex Assigned at Female 09/01/2022 10:18 AM EDT Legal Sex Female 10:18 AM EDT Gender Identity Female 09/01/2022 10:18 AM EDT Sexual Orientation Straight 09/01/2022 10 :18 AM EDT documented as of this encounter Plan of Treatment Upcoming Encounters Date Type Department Care Team (Late st Contact Info) Description 02/14/2025 2:30 PM EDT Office Visit [facility] OPTOMETRY [address] [place] [address] TarkaConnie, OD [address] [place] [address] documented as of this encounter Visit Diagnoses Diagnosis Depression, unspecified depression type documented in this encounter Additional Health Concerns Assessment Noted Time PHQ-9 Depression Total Score: 10 10/14/2 022 12:22 PM EST documented as of this encounter Care Teams Oil Well Service Operator Helper Relationship Specialty Start Date End Date Padmini Whittaker DO [address] [place] [address] PCP - General Family Medicine 08/25/13 documented as of this encounter
--- OUTSIDE RECORDS SUMMARY | 2025-02-08 12:20 | XMS_ITS | Clinical Summary ---
Author Organization [employer] Address [address] [place] [address] 7t [place] [address] Care Team Providers Care Beverage Host Name Role Phone Padmiin Whittaker Primary Care Provider Allergies Active Allergy Reactions Criticality Noted Date Comments Lisinopril Cough 08/10/2018 Penicillins 03/16/2013 Medications sodium chloride (Bacliff) 0.65 % nasal spray Administer 1-2 sprays into each nostril every 2 (two) hours if needed for congestion. 11/12/19 22 Active naloxone (Narcan) 4 mg/0.1 mL nasal spray Administer 0.1 mL into affected nostril(s). 06/11/20 21 Active pantoprazole (ProtoNix) 40 MG EC tablet Take 1 tablet by mouth before breakfast. 05/16/20 21 Active cholecalciferol (Vitamin D-3) 50 MCG (2000 UT) tablet Take 1 tablet by mouth 1 (one) time each day. 01/10/20 21 Active simethicone (Mylicon) 125 MG chewable tablet Chew 1 tablet in the morning and 1 tablet at noon and 1 tablet in the evening and 1 tablet before bedtime. 06/13/20 20 Active Calcium Carb-Cholecalcif yariel 500-5 MG-MCG tablet Take 1 tablet by mouth in the morning and at bedtime. 06/13/20 20 Active ketotifen (Zaditor) 0.025 % ophthalmic solution Administer 1 drop into affected eye(s) in the morning and 1 drop in the evening. 04/06/20 20 Active fluticasone (Flonase) 50 MCG/ACT nasal sprayIndications :Allergic rhinitis, unspecified seasonality, unspecified trigger INSTILL 2 SPRAYS IN EACH NOSTRIL ONCE DAILY IN THE MORNING 16 g 5 03/18/20 24 Active baclofen (Lioresal) 10 MG tablet Take 0.5 tablets (5 mg) by mouth if needed in the morning, at noon, and at bedtime for muscle spasms. 40 tablet 1 08/18/20 24 Active Diclofenac Sodium 1 % gel Apply 2 g topically if needed in the morning, at noon, in the evening, and at bedtime (pain). 150 g 3 08/18/20 24 Active ibandronate (Boniva) 150 MG tablet Take 1 tablet (150 mg) by mouth every 30 (thirty) days. Take in morning with full glass of water on an empty stomach. No food, drink, meds, or lying down for 60 minutes after. 1 tablet 11 08/18/20 24 Active amLODIPine (Norvasc) 10 MG tablet TAKE 1 TABLET BY MOUTH DAILY IN THE MORNING 90 tablet 3 08/31/20 24 Active cetirizine (ZyrTEC) 10 MG tablet TAKE 1 TABLET BY MOUTH EVERY MORNING 90 tablet 3 09/15/20 24 Active ezetimibe (Zetia) 10 MG tablet TAKE 1 TABLET BY MOUTH EVERY DAY 90 tablet 3 09/27/20 24 Active acetaminophen (Tylenol 8 Hour) 650 MG ER tablet TAKE 1 TABLET BY MOUTH EVERY 8 HOURS NEEDED FOR MILD PAIN. DO NOT BREAK, CRUSH, DISSOLVE OR CHEW 50 tablet 1 09/27/20 24 Active sertraline (Zoloft) 50 MG tabletIndication s:Depression, unspecified depression type TAKE 2 TABLETS BY MOUTH ONCE DAILY IN THE MORNING 60 tablet 3 12/14/19 25 Active propranolol (Inderal) 40 MG tabletIndication s:Hypertension, unspecified type TAKE 1 TABLET BY MOUTH TWICE DAILY 180 tablet 2 02/01/20 25 Active traMADol (Ultram) 50 MG tabletIndication s:Chronic left shoulder pain Take 1 tablet (50 mg) by mouth every 12 (twelve) hours if needed for severe pain for up to 7 days. 14 tablet 02/04/20 25 025 Active propranolol (Inderal) 40 MG tabletIndication s:Hypertension, unspecified type TAKE 1 TABLET BY MOUTH TWICE DAILY 180 tablet 2 05/02/20 24 025 Discontinued traMADol (Ultram) 50 MG tabletIndication s:Osteoporosis, unspecified osteoporosis type, unspecified pathological fracture presence TAKE 1 TABLET BY MOUTH EVERY TWELVE HOURS NEEDED FOR SEVERE PAIN 56 tablet 10/12/20 24 025 Discontinued traMADol (Ultram) 50 MG tabletIndication s:Osteoporosis, unspecified osteoporosis type, unspecified pathological fracture presence TAKE 1 TABLET BY MOUTH EVERY TWELVE HOURS NEEDED FOR SEVERE PAIN 14 tablet 01/18/20 25 025 Active Problems Problem Noted Date Diagnosed Date BMI 28.0-28.9,adult 08/17/2023 Osteoporosis 01/12/2023 Tremor 01/12/2023 Chronic gastroesophageal reflux disease 01/13/20 23 Essential hypertension 10/15/2015 Hyperlipidemia 10/15/2015 Pre-diabetes 10/15/2015 Microscopic hematuria 10/15/2015 Major depression, recurrent, chronic 10/15/2015 Rosacea 10/15/2015 Resolved Problems Problem Noted Date Diagnosed Date Resolved Date Overweight 01/07/2023 12/14/2023 Osteopenia 10/15/2015 01/12/2023 Encounters Date Type Department Care Team Description 02/06/2025 Telephone [facility] [address] [place] [address] Padmini Whittaker DO Appontment Cancel 02/03/2025 Refill [facility] MED & PEDS [address] [place] [address] Padmini Whittaker DO Chronic left shoulder pain 01/30/2025 Patient Outreach [facility] MED & PEDS [address] [place], [place] [phone] Padmini Whittaker DO Pre-visit Planning (SDOH negative, Tobacco screening negative. ) 01/29/2025 Refill [facility] [address] [place] [address] Padmini Whittaker DO Hypertension, unspecified type 01/16/2025 Refill [facility] MED & PEDS [address] [place] [address] Jeannie Lo MD Osteoporosis, unspecified osteoporosis type, unspecified pathological fracture presence 01/11/2025 Telephone [facility] [address] [place] [address] Padmini Whittaker DO No Show 12/10/2024 Refill [facility] [address] [place] [address] Padmini Whittaker, Depression, unspecified depression type 11/28/2024 Travel 11/28/2024 Telephone [facility] [address] [place] [address] Padmini Whittaker DO Appointment Request 11/28/2024 Telephone [facility] [address] [place] [address] Padmini Whittaker, No Show 11/17/2024 Patient Outreach [facility] [address] [place], [place] [phone] Padmini Whittaker, Pre-visit Planning ([facility] unable to reach [facility]) from Last 3 Months Immunizations Name Administration Dates Next Due Influenza High-dose Quadriva lent Preservative Free 08/17/2023,09/12/2020 Influenza Injectable Quadriv alant Preservative Free IIV4 MDCK 08/27/2022,09/12/2021 Influenza injectable quadriv alent IIV4 with preservative 08/08/2019,07/21/2016 Influenza injectable quadriv alent preservative free 08/20/2017,08/07/2015 Influenza, High Dose Seasona l, Preservative Free 08/18/2024,07/26/2018 Influenza, IIV3, injectable 08/21/2014, 9 Influenza, Split (incl. edith fied surface antigen) 08/30/2013,07/20/2012 Moderna Covid-19 Vaccine 12+ 09/18/2021,01/25/20 21,12/27/2020 Pfizer Covid-19 Vaccine 12+ 08/18/2024, Pfizer Covid-19 Vaccine 12+ Bivalent 09/08/2022 Pneumococcal Conjugate PCV 13 01/08/2017 Pneumococcal Conjugate PCV 20 08/17/2023 Pneumococcal Polysaccharide PPSV23 10/15/2015 TD (adult), 2 Lf tetanus tox oid, preservative free, adsorbed 08/05/2005 Tdap 02/08/2014 Zoster, live 07/21/2016 Social History Tobacco Use Types Packs/Day Years Used Date Smoking Tobacco: Former Cigarettes Smokeless Tobacco: Never Tobacco Cessation:Counseling Given: Not Answered Alcohol Use Standard Drinks/Week Comments Never 0 [...] Orientation Straight 09/01/2022 10 :18 AM EDT Last Filed Vital Signs Vital Sign Reading Time Taken Comments Blood Pressure 132/69 08/18/2024 9:59 AM EDT Pulse 72 08/18/2024 9:59 AM EDT Temperature 36.1 ??C (97 ??F) 08/18/2024 9:59 AM EDT Respiratory Rate 16 08/18/2024 9:59 AM EDT Oxygen Saturation 94% 08/17/2023 10:31 AM EDT Inhaled Oxygen Concentration - - Weight 72.6 kg (160 lb) 08/18/2024 9:59 AM EDT Height 157.5 cm (5' 2 ) 08/18/2024 9:59 AM EDT Body Mass Index 29.26 08/18/2024 9:59 AM EDT Plan of Treatment Upcoming Encounters Date Type Department Care Team (Late st Contact Info) Description 02/14/2025 2:30 PM EDT Office Visit [facility] OPTOMETRY [address] [place] [address] Tarka Connie, OD [address] [place] [address] Health Maintenance Due Date Last Done Comments CT Colonography 1950 Colonoscopy 1950 Colorectal Cancer Screening 1950 FIT DNA/Cologuard 1950 FIT 1950 FOBT 1950 Sigmoidoscopy 1950 Alcohol/Substance Use Screening 1962 Hepatitis C Screening 02/27/1968 Zoster Vaccines (2 of 3) 09/15/2016 07/21/2016 Pap Smear 09/27/2022 09/27/2019, 08/07/2016 DTaP/Tdap/Td Vaccines (2 - Td or Tdap) 02/09/2024 02/08/2014, 08/05/2005 Depression Screening 08/17/2024 08/17/2023, 08/17/20 23 RSV Patients and Patients Aged 60 years or older (1 - 1-dose 75+ series) 2025 Mammogram 03/31/2025 03/31/2023, 03/04, 03/26/2018 Tobacco Screening 08/18/2025 08/18/2024 Diabetes: Hemoglobin A1C 09/08/2025 024, 05/15/2023, 02/05/2021, Additional history exists SDOH Screening 01/30/2026 01/30/2025 Lipid Panel 09/08/2029 09/08/2024, 0701/2023, 02/05/2021, Additional history exists Pneumococcal Vaccine: 50+ Years Completed 08/17/2023, 01/08/2017, 10/15/2015 COVID-19 Vaccine Completed 08/18/2024, 04/2023, 09/08/2022, Additional history exists Influenza Vaccine Completed 08/18/2024, , 08/27/2022, Additional history exists HIB Vaccines Aged Out No longer eligi ble based on patient's age to complete this topic HPV Vaccines Aged Out No longer eligi ble based on patient's age to complete this topic Hepatitis A Vaccines Aged Out No long er eligible based on patient's age to complete this topic Hepatitis B Vaccines Aged Out No long er eligible based on patient's age to complete this topic IPV Vaccines Aged Out No longer eligi ble based on patient's age to complete this topic Meningococcal Vaccine Aged Out No stephanie jeannie eligible based on patient's age to complete this topic RSV under 20 months Aged Out No longe r eligible based on patient's age to complete this topic Rotavirus Vaccines Aged Out No longer eligible based on patient's age to complete this topic Procedures Procedure Name Priority Date/Time Associated Diagnosis Comments HEMOGLOBIN A1C Routine 09/08/2024 1:06 PM EST Essential hypertension LIPID PANEL, STANDARD Routine 09/08/2024 1:06 PM EST Essential hypertension BI MAMMOGRAM SCREENING TOMOSYNTHESIS BILATERAL Routine 03/31/2023 2:00 PM EDT PAP SMEAR Routine 09/27/2019 12:00 AM EST from Last 3 Months or Most Recently Relevant to Health Maintenance Results * Hemoglobin A1c (09/08/2024 1:06 PM EST) Hemoglobin A1c 5.9 <6.0 % [facility] Comment:Hemoglobin A1C Refer ence Range Adults: 4.8 - 6.0 % Non diabetic: < 6.0 % Goal: < 7.0 %Additional Action Suggested: > 8.0 %Note: Hemoglobin A1c results are invalid for patients with abnormal amounts of HbF. Blood transfusions may impact the HbA1c concentration in the patient sample. Estimated Average Glucose 123 mg/dL [facility] Comment:eAG = Estimated ave rage glucose which is %A1C expressed asaverage glucose, using the formula of the A5H-DhurwdyJrmvnkb Glucose study (ADAG), Diabetes Care, Vol.31,#8,Jun. 2007 Blood Venous blood specimen / Unknown 09/08/2024 1:06 PM EST 09/08/2024 4:08 PM EST Padmini Whittaker DO LAB BLOOD ORDERABLES Final R esult Performing Organization Address City/Special Care Hospital/ZIP Co de Phone Number [facility] [address] [place] [phone] * (ABNORMAL) Lipid Panel, Standard (09/08/2024 1:06 PM EST) Triglycerides 97 <150 mg/dL [facility] Comment:Desirable Triglyceri de: less than 150 mg/dLBorderline High Triglyceride 150-199 mg/dLHigh Triglyceride: 200-499 mg/dLVery High Triglyceride: greater than or equal to 5OO mg/dL Cholesterol 236(H) <200 mg/dL [facility] Comment:Desirable Cholestero l: less than 200 mg/dLBorderline High Cholesterol: 200-239 mg/dLHigh Cholesterol: greater than 239 mg/dL LDL Cholesterol Calculated 158(H) <100 mg/dL [facility] Comment:Desirable LDL: less than 100 mg/dLNear Optimal/Above Optimal LDL: 110- 129 mg/dLBorderline High LDL: 130-159 mg/dLHigh LDL: 160-189 mg/dLVery High LDL: greater than or equal to 190 mg/dL HDL Cholesterol 59 >40 mg/dL [facility] Comment:Desirable HDL: great er than 40 mg/dL Note: This HDL assay may give artificially low results in patients with liver disease. Blood Venous blood specimen / Unknown 09/08/2024 1:06 PM EST 09/08/2024 4:08 PM EST Padmini Whittaker DO LAB BLOOD ORDERABLES Final R esult Performing Organization Address City/Special Care Hospital/ZIP Co de Phone Number [facility] [address] [place] [phone] * BI Mammogram Screening Tomosynthesis Bilateral (03/31/2023 2:00 PM EDT) Anatomical Region Laterality Modality Breast Bilateral Mammography 03/31/2023 2:00 PM EDT Narrative 04/01/2023 4:52 PM EDT ? [facility] ? [address] ?[place], [place] [address] ? Mammography Report ? Signed ? Patient: Marroquin,Tosha ?MR#: [id number] ?? [id number] ? : 1950 ?Acct:[id number] ? Age/Sex: 73 / F ?ADM Date: 03/31/ ? Loc: HO.MAMMO ? Attending Dr: Padmini Whittaker DO ? Ordering Physician: Padmini Whittaker DO ?Results: 1N ?? egative ? Date of Service: 03/31/ ?Follow Up: 1 Year From Orig ?? inal Mammogram ? Procedure(s): MM tomosynthesis screening BI ?? Accession Number(s): [id number] ? cc: Padmini Whittaker Tai DO ? EXAMINATION: ?? MM SCREENING DIGITAL BREAST TOMOSYNTHESIS, BILATERAL ? CLINICAL INFORMATION: ? Screening. Asymptomatic. ? The lifetime risk of breast cancer based on the Tyrer-Cuzick Model is ?? 3%. ? COMPARISON: ?? Mammography: 03/25/2018, 01/29/2017, 10/11/2015 ? TECHNIQUE: ?? Digital breast tomosynthesis is performed in both the craniocaudal and ?? mediolateral oblique views along with computer-aided detection (CAD). ?? Synthesized 2D images are generated from the tomosynthesis. ? FINDINGS: ?? The breasts are almost entirely fatty (ACR BI-RADS breast composition ?? Category a). ? There are no significant masses, abnormal calcifications, or other ?? abnormalities. ?? No developing density or architectural abnormality. ?? There are scattered bilateral benign ductal secretory calcifications. ?? The axilla and skin contours are unremarkable. No significant changes. ? MM/MM tomosynthesis screening BI ?? IMPRESSION: ?? No mammographic evidence of malignancy. ? ASSESSMENT: ? BI-RADS 2: Benign ? RECOMMENDATION: ?? Routine annual mammography screening. ? This patient's information was entered into a reminder system with a ?? target due date for their next mammogram. ? Dictated By: ?Arthur Allen MD ? Signed By: ?<Electronically signed by Arthur Allen MD in OV> ?04/01/23 1649 ? DD/ 1400 ? TD/TT: ? Bioinformatics Scientist: MARTINEZ ? Procedure Note Chang, Madelin - 04/30/2023 [facility] [address] [place] [address] Mammography Report Signed Patient: Steven Marroquin#: [id number] : 1950Acct:[id number] Age/Sex: 73 / FADM Date: 03/31/23 Loc: HO.MAMMO Attending Dr: Padmini Whittaker DO Ordering Physician: Padmini Whittakerults: 1N egative Date of Service: 03/31/23Follow Up: 1 Year From Orig inal Mammogram Procedure(s): MM tomosynthesis screening BI Accession Number(s): [id number] cc: Padmini Whittaker DO EXAMINATION: MM SCREENING DIGITAL BREAST TOMOSYNTHESIS, BILATERAL CLINICAL INFORMATION: Screening. Asymptomatic. The lifetime risk of breast cancer based on the Tyrer-Cuzick Model is 3%. COMPARISON: Mammography: 03/25/2018, 01/29/2017, 10/11/2015 TECHNIQUE: Digital breast tomosynthesis is performed in both the craniocaudal and mediolateral oblique views along with computer-aided detection (CAD). Synthesized 2D images are generated from the tomosynthesis. FINDINGS: The breasts are almost entirely fatty (ACR BI-RADS breast composition Category a). There are no significant masses, abnormal calcifications, or other abnormalities. No developing density or architectural abnormality. There are scattered bilateral benign ductal secretory calcifications. The axilla and skin contours are unremarkable. No significant changes. MM/MM tomosynthesis screening BI IMPRESSION: No mammographic evidence of malignancy. ASSESSMENT: BI-RADS 2: Benign RECOMMENDATION: Routine annual mammography screening. This patient's information was entered into a reminder system with a target due date for their next mammogram. Dictated By: Arthur Allen MD Signed By: <Electronically signed by Arthur Allen MD in OV> 04/01/23 1649 DD/ 1400 TD/TT: Bioinformatics Scientist: MARTINEZ [facility] External Provider IMG BI PROCEDURES Final Result * Pap Smear (09/27/2019 12:00 AM EST) Swab Padmini Whittaker DO LAB CYTOLOGY ORDERABLES Greta l Result [facility] [address] [place] [phone] from Last 3 Months or Most Recently Relevant to Health Maintenance Insurance [facility] Care Teams Beverage Host Relationship Specialty Start Date End Date Padmini Whittaker DO [address] [place] [phone] PCP - General Family Medicine 08/25/13
--- OUTSIDE RECORDS SUMMARY | 2025-02-08 12:20 | XMS_ITS | Encounter Summary ---
Author Organization [employer] Address [address] [facility] 7t [place] [address] Care Team Providers Care Staff Midwife Name Role Phone Padmini Whittaker DO Primary Care Provider + [phone] Reason for Visit * Reason Onset Date Comments Med Refill 10/10/2024 Encounter Details Date Type Department Care Team ([facility] st Contact Info) Description 10/10/2024 Telephone [facility] [address] [place] [address] Padmini Whittaker DO [address] [place] [address] Med Refill Social History Tobacco Use Types Packs/Day Years [...] housing situation today? I have jason william 08/17/[address] you li ve. Do you have problems with any of the following? None of the above 08/17/2023 Food Insecurity Answer Date Recorded Within the past 12 months, y ou worried that your food would run out before you got money to buy more: Never True 08/17/2023 Within the past 12 months,th e food you bought just didn't last and you didn't have enough money to get more: Never True Transportation Answer Date Recorded In the past 12 months, has l ack of transportation kept you from medical appts, meetings, work or from getting things needed for daily living? No 08/17/2023 Utilities Answer Date Recorded In the past 12 months, has t he electric, gas, oil or water company threatened to shut off services in your home? No 08/17/2023 Depression Answer Date Recorded Patient Health Questionnaire-2 Score 0 08/17/2023 Comments Unknown Sex and Gender Information Value Date Recorded Sex Assigned at Female 09/01/2022 10:18 AM EDT Legal Sex Female 10:18 AM EDT Gender Identity Female 09/01/2022 10:18 AM EDT Sexual Orientation Straight 09/01/2022 10 :18 AM EDT documented as of this encounter Miscellaneous Notes * Telephone Encounter - Montez Goodman - 10/10/2024 1:51 PM EST TC from pt requesting medication refill. Medications needing refill : traMADol (Ultram) 50 MG tablet To be sent to: [facility] documented in this encounter Plan of Treatment Upcoming Encounters Date Type Department Care Team (Late st Contact Info) Description 02/14/2025 2:30 PM EDT Office Visit [facility] OPT[facility]RY [address] [place] [address] TarConnie romo, OD [address] [place] [address] documented as of this encounter Visit Diagnoses Not on filedocumented in this encounter Additional Health Concerns Assessment Noted Time PHQ-9 Depression Total Score: 0 08/17/20 23 10:33 AM EDT documented as of this encounter Care Teams Staff Midwife Relationship Specialty Start Date End Date Padmini Whittaker DO [address] [place] [address] PCP - General Family Medicine 08/25/13 documented as of this encounter
--- OUTSIDE RECORDS SUMMARY | 2025-02-08 12:20 | XMS_ITS | Encounter Summary ---
Author Organization [employer] Address [address] [facility] [address] [place] [address] Care Team Providers Care Wildlife Conservation Professor Name Role Phone Padmini Whittaker DO Primary Care Provider + [phone] Reason for Visit * Reason Comments Med Refill Encounter Details Date Type Department Care Team (Late st Contact Info) Description 10/06/2024 Refill [facility] [address] [place] [address] Padmini Whittaker DO [address] [place] [address] Osteoporosis, unspecified osteoporosis type, unspecified pathological fracture presence Social History Tobacco Use Types Packs/Day Years [...] Description 02/14/2025 2:30 PM EDT Office Visit [facility] [address] [place] [address] Connie Blair, OD [address] [place] [address] documented as of this encounter Visit Diagnoses Diagnosis Osteoporosis, unspecified osteoporosis type, unspecified pathological fracture presence documented in this encounter Additional Health Concerns Assessment Noted Time PHQ-9 Depression Total Score: 0 08/17/20 23 10:33 AM EDT documented as of this encounter Care Teams Wildlife Conservation Professor Relationship Specialty Start Date End Date Padmini Whittaker DO [address] [place] [address] PCP - General Family Medicine 08/25/13 documented as of this encounter
== END 2025-02-07 10:43 | disposition home or self-care (01) ==
LOC: HO.HOSX 10:42
PROVIDERS: Visit Provider Physician Assistant
DX: M25.511 Pain in right shoulder (principal); M75.101 Unspecified rotator cuff tear or rupture of right shoulder, not specified as traumatic; M75.102 Unspecified rotator cuff tear or rupture of left shoulder, not specified as traumatic
CPT/HCPCS: 73030; 99202

== ENCOUNTER 2025-02-07 13:19 | Outpatient (AMB) | payer OTHER, SELFPAY ==
--- NOTE | 2025-02-07 14:17 | A.OFFVIS_ITS ---
Vital Signs 02/07/25 14:22 Height 5 ft 2 in Weight 142 lb BMI 26.0 Handedness Right Intake Visit Reasons: New Pt - B/L shoulder pain Intake Note: Tosha is a 74 year old right hand dominant female who presents today as a new patient for a evaluation of her bilateral shoulder pain. No hx of injury. Hx of injections only in the left shoulder with no relief. Hx of left shoulder surgery more than 5 years here [facility] [place]. Patient reports ongoing pain for about 3 - 4 months. She states that her pain is on the lateral aspect of the shoulder and it rad iates up to her neck at times in her left shoulder but her right shoulder her pain is more near the bicep area. Patient reports her pain is worse in her left shoulder and the right. She expresses her pain is worse when she is laying on her side and lifting her arm. IMPRESSION (09/08/24): Mild acromioclavicular joint arthritis. Enrollment Management Manager Required: Yes Enrollment Management Manager Language: Social Work Supervisor Services: Enrollment Management Manager Present (Mily ([id number])) Allergies penicillin G [Penicillin G] Allergy (Mild, Verified 02/07/25 14:21) DIZZY,HIVES penicillin V Allergy (Unknown, Verified 02/07/25 14:21) Unknown HPI HPI New Pt - B/L shoulder pain: Details: Ms. Marroquin is a 74-year-old mujpb-qhzy-jwxzjuvx female who presents the office today for evaluation of bilateral shoulder pain. She reports the pain has been present for the past 3-4 months. She denies any injury or trauma to either shoulder. She denies any numbness or tingling in the upper extremities. She reports that she had prior arthroscopic surgery on the left shoulder but is unsure what procedure was done. Left shoulder pain is greater than right. She has tried an injection in the left shoulder in the past which did not give her any relief and she is not interested in repeating injection. [facility] Medical History Chronic gastroesophageal reflux disease Osteoporosis Overweight Rosacea Major depression Pre-diabetes Hyperlipidemia Essential hypertension Social History (Updated 02/07/25 @ 14:22 by Cinthia Gomes) Alcohol intake: never Patient Tobacco Use Status: Never used Tobacco Current occupational status: disabled Current occupation: right hand dominant Review of Systems Const All systems reviewed & are unremarkable except as noted in HPI and below Physical Exam Vital Signs: BMI result Body Mass Index 26.0 Const General: cooperative, healthy appearing and no acute distress Resp Effort & Inspection: normal respiratory effort and able to speak in complete sentences Cardio Rate: regular rate Peripheral pulses: Peripheral pulses 2+ throughout Skin Lesions: no lesions Rashes: no rashes Extrem Other: Right shoulder: Full shoulder ROM in all planes. Negative cross-body reach. Negative empty can. Negative drop arm. NVI. Left shoulder: Lacking roughly 20 degrees of forward flexion and abduction. External rotation to end range. Positive cross-body reach. 4-5 strength with empty can. Negative drop arm. NVI. Assessment & Plan Assessment & Plan (1) Painful arc syndrome of right shoulder: Code(s): M75.101 - Unspecified rotator cuff tear or rupture of right shoulder, not specified as traumatic Category: Medical (2) Painful arc syndrome of left shoulder: Code(s): M75.102 - Unspecified rotator cuff tear or rupture of left shoulder, not spec ified as traumatic Category: Medical Plan Ms. Marroquin is a 74-year-old rivzn-[id number] female who presents the office today for evaluation of bilateral shoulder pain. She reports the pain has been present for the past 3-4 months. She denies any injury or trauma to either shoulder. She denies any numbness or tingling in the upper extremities. She reports that she had prior arthroscopic surgery on the left shoulder but is unsure what procedure was done. Left shoulder pain is greater than right. She has tried an injection in the left shoulder in the past which did not give her any relief and she is not interested in repeating injection. While the office today, we discussed the role of physical therapy and cortisone injections. As previously stated in the HPI the patient is not interested in proceeding with any cortisone injection at this time. Instead, we will proceed with physical therapy for bilateral shoulders. She will follow-up p.r.n., sooner if needed. X-rays of the right shoulder which were obtained while in the office today and were reviewed by me, Tosha Beavers PA-C, revealed no acute fracture dislocation. Prior films of the left shoulder obtained on 09/25/2024 were reviewed by me and are negative for any acute fracture dislocation. Orders: Orders XR shoulder RT min 2V Today M25.519 - Pain in unspecified shoulder Coding Level of Care Code New Pt Level 3 (23016) Diagnoses Painful arc syndrome of right shoulder M75.101 Painful arc syndrome of left shoulder M75.102
[2025-02-07 14:22] VITALS: BMI 26.0
== END 2025-02-07 14:50 | disposition home or self-care (01) ==
LOC: HO.HOS 13:20
PROVIDERS: PCP Family Medicine; Visit Provider Physician Assistant
DX: M75.101 Unspecified rotator cuff tear or rupture of right shoulder, not specified as traumatic (principal); M75.102 Unspecified rotator cuff tear or rupture of left shoulder, not specified as traumatic
CPT/HCPCS: 99203

== ENCOUNTER → 2025-02-07 13:54 | Outpatient (BNV) | payer OTHER, SELFPAY | PROVIDERS: Visit Provider Radiology Diagnostic Radiology | DX: M25.511 Pain in right shoulder (principal) | CPT/HCPCS: 73030 ==